=== PATIENT | female | born 1960 | race Caucasian/White ===

== ENCOUNTER 2018-12-02 01:19 | Observation (INO) | payer OTHER ==
[2018-12-02] MEDS ORDERED: NS 1,000 ML IV ONE ×2 (01:32→02:58)
--- NOTE | 2018-12-02 01:32 | EDPHY ---
H & P Stated Complaint: ABd/chest pain-recent cardiac w/u and hx of SBO Time Seen by Provider: 12/02/18 01:32 HPI/ROS: HPI CHIEF COMPLAINT: Abdominal pain and chest pain. HISTORY OF PRESENT ILLNESS: Patient is a 58-year-old female she complains of abdominal pain that started Tuesday. She no some upper abdominal pain with associated nausea no vomiting. The pain persisted. Waxing waning throughout the week. Also complains of left shoulder, left jaw, left upper arm pain,, complains of left-sided chest pain. She went to her primary care doctor's office earlier yesterday and had a KUB. She is unsure exactly what that showed. She reports ongoing nausea, however abdominal pain in her upper abdomen got worse. And has some left-sided upper chest pain associated with this. She reports to me that is often when she gets upper abdominal pain she gets associated chest pain with this. She denies fever, denies shortness of breath, denies active vomiting or diarrhea she had a bowel movement earlier today. However her abdominal pain in her epigastric region got worse. This is what prompted her to come to the emergency room. Past Medical History: Denies significant medical history except for harm replacement. Past Surgical History: Multiple abdominal surgeries including gallbladder removal, appendectomy, endometriosis surgery, hysterectomy, bowel obstruction, bowel resection Social History: Denies drugs alcohol tobacco. Family History: Significant coronary artery disease and cardiovascular disease in her family including DC in her dad her age. ROS REVIEW OF SYSTEMS: 10 Systems were reviewed and negative with the exception of the elements mentioned in the history of present illness. Exam Constitutional triage nursing summary reviewed, vital signs reviewed, awake/ alert. Eyes normal conjunctivae and sclera, EOMI, PERRLA. HENT normal inspection, atraumatic, moist mucus membranes, no epistaxis, neck supple/ no meningismus, no raccoon eyes. Respiratory clear to auscultation bilaterally, normal breath sounds, no respiratory distress, no wheezing. Cardiovascular rate normal, regular rhythm, no murmur, no edema, distal pulses normal. Gastrointestinal mild tender palpation epigastric, no rebound, no guarding, normal bowel sounds, no distension, no pulsatile mass. Genitourinary no CVA tenderness. Musculoskeletal no midline vertebral tenderness, full range of motion, no calf swelling, no tenderness of extremities, no meningismus, good pulses, neurovascularly intact. Skin pink, warm, & dry, no rash, skin atraumatic. Neurologic awake, alert and oriented x 3, AAOx3, moves all 4 extremities equally, motor intact, sensory intact, CN II-XII intact, normal cerebellar, normal vision, normal speech. Psychiatric normal mood/affect. Heme/Lymph/Immune no lymphadenopathy. Differential Diagnosis: Differential diagnosis includes but is not limited to and in no particular order: Bowel obstruction, appendicitis, gallbladder disease, diverticulitis, colitis, enteritis, perforated viscus, gastritis, GERD , esophagitis, urinary tract infection, pyelonephritis, kidney stones Differential diagnosis includes but is not limited to: ACS, atypical chest pain , pneumothorax, pneumonia, pulmonary embolism, aortic dissection, congestive heart failure, tumor, musculoskeletal pain, esophageal pain, GERD, peptic ulcer disease, pancreatitis Medical Decision Making: Plan for this patient IV establishment IV fluid bolus , IV Zofran, EKG, troponin, basic labs, lipase, LFTs, electrolytes, chest x- ray. Rule out acute coronary syndrome, rule out pulmonary embolism. Re-evaluation: EKG interpretation by me on record in [employer] system. Impression time of EKG 1:46 a.m., sinus rhythm rate of 63, LVH, left atrial enlargement. No signs of acute ischemia. Troponin 0.00 HEART Score for Major Cardiac Events from [email or web address] on 12/02/2018 All calculations should be rechecked by clinician prior to use RESULT SUMMARY: 4 points Moderate Score (4-6 points) Risk of MACE of 12-16.6%. INPUTS: History > 1 = Moderately suspicious EKG > 0 = Normal Age > 1 = 45-64 Risk factors > 2 = 3 risk factors or history of atherosclerotic disease Initial troponin > 0 = normal limit Given the patient's left-sided jaw pain, left upper arm pain, left-sided chest pain, epigastric discomfort and nausea with no clear explanation she does have a significant family history cardiovascular disease, plan will be for admission to the hospital for further cardiac evaluation serial enzymes and stress testing. I spoke with the hospitalist service Dr. Baxter who agrees to admit. Source: Patient - Personal History Current Tetanus Diphtheria and Acellular Pertussis (TDAP): Unsure - Medical/Surgical History Hx Asthma: No Hx Chronic Respiratory Disease: No Hx Diabetes: No Hx Cardiac Disease: Yes Hx Renal Disease: No Hx Cirrhosis: No Hx Alcoholism: No Hx HIV/AIDS: No Hx Splenectomy or Spleen Trauma: No Other PMH: cholecysectomy, stricters, appendectomy, SBO, Colectomy, Endometriosis, Possible Aortic aneurysm,hysterectomy - Social History Smoking Status: Never smoked Constitutional: Initial Vital Signs Temperature (C) 36.7 C 12/02/18 01:23 Heart Rate 67 12/02/18 01:23 Respiratory Rate 16 12/02/18 01:23 Blood Pressure 169/110 H 12/02/18 01:23 O2 Sat (%) 97 12/02/18 01:23 O2 Delivery Mode Nasal Cannula O2 (L/minute) 2 Allergies/Adverse Reactions: morphine Allergy (Verified 12/02/18 01:23) Sulfa (Sulfonamide Antibiotics) Allergy (Verified 12/02/18 01:23) Home Medications: Medication Instructions Recorded Ascorbic Acid [Vitamin C 250 mg 250 mg PO DAILY 12/02/18 (*)] Cholecalciferol Vit D3 [Vitamin D3 1,000 units PO DAILY 12/02/18 (*)] Compounded Progesterone Caps 100 mg PO DAILY 12/02/18 Compounded Testosterone Cream 1 nargis TP AD 12/02/18 Estradiol [Estraderm 0.05 MG] 0.05 mg TD SUWE 12/02/18 Herbals/Supplements -Info Only 1 ea PO DAILY 12/02/18 Clark-3 Fatty Acids [Fish Oil 1000 1,000 mg PO DAILY 12/02/18 mg (*)] Pantoprazole Sodium [Protonix 40mg 40 mg PO DAILY #30 tab 12/02/18 (*)] Vitamin B Complex [Balanced B-50] 1 each PO DAILY 12/02/18 Medical Decision Making - Data Points Laboratory Results: Laboratory Results 12/02/18 01:50 12/02/18 01:50 Medications Given: Discontinued Medications Acetaminophen (Tylenol) 650 mg PO Q4HRS PRN PRN Reason: Pain, Mild/Fever, Can Take PO Stop: 05/31/19 06:24 Last Admin: 12/02/18 11:19 Dose: 650 mg Al Hydroxide/Mg Hydroxide (Maalox Susp) 30 ml PO ONCE ONE Stop: 12/02/18 06:35 Last Admin: 12/02/18 08:04 Dose: 30 ml Enoxaparin Sodium (Lovenox) 40 mg SC DAILY RONALD Stop: 05/31/19 08:59 Last Admin: 12/02/18 08:09 Dose: 40 mg Hydromorphone HCl (Dilaudid) 0.5 mg IVP EDNOW ONE Stop: 12/02/18 03:04 Last Admin: 12/02/18 03:19 Dose: 0.5 mg Hyoscyamine Sulfate (Levsin, Hyomax-Sl) 0.25 mg PO ONCE ONE Stop: 12/02/18 06:35 Last Admin: 12/02/18 08:04 Dose: 0.25 mg Sodium Chloride (Ns) 1,000 mls @ 0 mls/hr IV EDNOW ONE; Wide Open PRN Reason: Protocol Stop: 12/02/18 01:33 Last Admin: 12/02/18 02:02 Dose: 1,000 mls Sodium Chloride (Ns) 1,000 mls @ 0 mls/hr IV ONCE ONE PRN Reason: Wide Open Stop: 12/02/18 02:59 Last Admin: 12/02/18 03:18 Dose: 1,000 mls Sodium Chloride (Ns) 1,000 mls @ 100 mls/hr IV CONT RONALD Stop: 05/31/19 06:44 Last Admin: 12/02/18 08:03 Dose: 1,000 mls Lidocaine (Lidocaine 2% Viscous) 15 ml PO ONCE ONE Stop: 12/02/18 06:35 Last Admin: 12/02/18 08:04 Dose: 15 ml Ondansetron HCl (Zofran) 4 mg IVP EDNOW ONE Stop: 12/02/18 01:45 Last Admin: 12/02/18 02:03 Dose: 4 mg Point of Care Test Results: Chemistry 12/02/18 01:54 POC Troponin I 0.00 ng/mL ng/mL (0.00-0.08) Departure - Departure Disposition: [facility] Acute Clinical Impression: Chest pain Qualifiers: Chest pain type: unspecified Qualified Code(s): R07.9 - Chest pain, unspecified Condition: Fair
[2018-12-02] MEDS ORDERED: ONDANSETRON 4 MG/2 ML VIAL IVP ONE (01:44)
[2018-12-02 02:00] LABS: PLATELET COUNT 277 10^3/uL (150-400)
[2018-12-02 02:08] LABS: INR 1.07 (0.83-1.16); PROTIME(PATIENT) 13.5 SEC (12.0-15.0)
[2018-12-02] MEDS ORDERED: IOPAMIDOL (ISOVUE-300) 100 ML BTL ONE (03:03)
[2018-12-02] MEDS ORDERED: HYDROmorphONE/DILAUDID 2 MG/ML INJ IVP ONE (03:03)
[2018-12-02] MEDS ORDERED: ONDANSETRON 4 MG/2 ML VIAL IVP PRN (06:25)
[2018-12-02] MEDS ORDERED: ACETAMINOPHEN 325 MG TAB PO PRN (06:25)
[2018-12-02] MEDS ORDERED: ONDANSETRON DISINTEGRATING 4 MG TAB PO PRN (06:25)
[2018-12-02] MEDS ORDERED: HYOSCYAMINE SULFATE 0.125 MG TAB PO ONE (06:34)
[2018-12-02] MEDS ORDERED: MAG HYDROX/AL HYDROX/SIMETH 30 ML UDCUP PO ONE (06:34)
[2018-12-02] MEDS ORDERED: LIDOCAINE 2% VISCOUS 15 ML UDCUP PO ONE (06:34)
[2018-12-02] MEDS ORDERED: NS 1,000 ML IV SCH (06:45)
--- NOTE | 2018-12-02 06:46 | PDGENHP ---
History and Physical - Chief Complaint Abdominal pain - History of Present Illness 58 yo F w/ hx of multiple abdominal surgeries presents with 4 days of abdominal pain. The patient has had epi-gastric pain since Tuesday. She describes this as band-like pain across her upper abdomen. She has occasional discomfort in her L neck and shoulder as well. The discomfort continued into today and made it difficult to sleep so she came to the ED for evaluation. Her last BM was last night and she continues to pass gas. She has a complicated abdominal history. In 2009 she had abdominal surgery due to endometriosis requiring partial colectomy. She has also had a cholecystectomy and appendectomy. She tells me these symptoms remind her of prior bowel obstructions but have not resolved with liquid diet and rest, as usual. In the ED her evaluation, including CT, has been mostly unremarkable. She is being admitted for observation and further work-up. Case discussed with ED physician Dr. Kingsely; records reviewed and summarized above. History Information - Allergies/Home Medication List Allergies/Adverse Reactions: morphine Allergy (Verified 12/02/18 01:23) Sulfa (Sulfonamide Antibiotics) Allergy (Verified 12/02/18 01:23) Home Medications: Estradiol 12/02/18 [Last Taken Unknown] Progesterone 12/02/18 [Last Taken Unknown] Testosterone 12/02/18 [Last Taken Unknown] I have personally reviewed and updated: family history, medical history - Past Medical History Additional medical history: Endometriosis - Surgical History Reports: appendectomy, cholecystectomy, colectomy - Family History Positive for: CAD, stroke - Social History Smoking Status: Never smoked Review of Systems Review of Systems: ROS: 10pt was reviewed & negative except for what was stated in HPI & below Physical Exam Physical Exam: Temp Pulse Resp BP Pulse Ox 36.8 C 55 L 18 110/80 98 12/02/18 06:17 12/02/18 06:17 12/02/18 06:17 12/02/18 06:17 12/02/18 06:17 Constitutional: appears nourished, uncomfortable Eyes: PERRL, EOMI Ears, Nose, Mouth, Throat: moist mucous membranes, no oral mucosal ulcers Cardiovascular: regular rate and rhythym, systolic murmur Respiratory: no respiratory distress, clear to auscultation Gastrointestinal: normoactive bowel sounds, tenderness (Mild, epi-gastric) Skin: warm, normal color Musculoskeletal: full muscle strength, no muscle tenderness Neurologic: AAOx3, CN II-XII Intact Psychiatric: interacting appropriately, not anxious Lab Data & Imaging Review 12/02/18 01:50 12/02/18 01:50 WBC 8.03 10^3/uL (3.80-9.50) 12/02/18 01:50 RBC 4.88 10^6/uL (4.18-5.33) 12/02/18 01:50 Hgb 15.2 g/dL (12.6-16.3) 12/02/18 01:50 Hct 44.0 % (38.0-47.0) 12/02/18 01:50 MCV 90.2 fL (81.5-99.8) 12/02/18 01:50 MCH 31.1 pg (27.9-34.1) 12/02/18 01:50 MCHC 34.5 g/dL (32.4-36.7) 12/02/18 01:50 RDW 12.5 % (11.5-15.2) 12/02/18 01:50 Plt Count 277 10^3/uL (150-400) 12/02/18 01:50 MPV 9.4 fL (8.7-11.7) 12/02/18 01:50 Neut % (Auto) 49.5 % (39.3-74.2) 12/02/18 01:50 Lymph % (Auto) 35.6 % (15.0-45.0) 12/02/18 01:50 [place] % (Auto) 8.3 % (4.5-13.0) 12/02/18 01:50 Eos % (Auto) 5.6 % (0.6-7.6) 12/02/18 01:50 Baso % (Auto) 0.9 % (0.3-1.7) 12/02/18 01:50 Nucleat RBC Rel Count 0.0 % (0.0-0.2) 12/02/18 01:50 Absolute Neuts (auto) 3.97 10^3/uL (1.70-6.50) 12/02/18 01:50 Absolute Lymphs (auto) 2.86 10^3/uL (1.00-3.00) 12/02/18 01:50 Absolute Monos (auto) 0.67 10^3/uL (0.30-0.80) 12/02/18 01:50 Absolute Eos (auto) 0.45 10^3/uL (0.03-0.40) H 12/02/18 01:50 Absolute Basos (auto) 0.07 10^3/uL (0.02-0.10) 12/02/18 01:50 Absolute Nucleated RBC 0.00 10^3/uL (0-0.01) 12/02/18 01:50 Immature Gran % 0.1 % (0.0-1.1) 12/02/18 01:50 Immature Gran # 0.01 10^3/uL (0.00-0.10) 12/02/18 01:50 PT 13.5 SEC (12.0-15.0) 12/02/18 01:50 INR 1.07 (0.83-1.16) 12/02/18 01:50 APTT 30.2 SEC (23.0-38.0) 12/02/18 01:50 D-Dimer 0.40 ug/mLFEU (0.00-0.50) 12/02/18 01:50 VBG Lactic Acid 0.8 mmol/L (0.7-2.1) 12/02/18 02:51 Sodium 140 mEq/L (135-145) 12/02/18 01:50 Potassium 3.7 mEq/L (3.5-5.2) 12/02/18 01:50 Chloride 105 mEq/L (97-110) 12/02/18 01:50 Carbon Dioxide 26 mEq/l (22-31) 12/02/18 01:50 Anion Gap 9 mEq/L (6-14) 12/02/18 01:50 BUN 13 mg/dL (7-23) 12/02/18 01:50 Creatinine 0.9 mg/dL (0.6-1.0) 12/02/18 01:50 Estimated GFR > 60 12/02/18 01:50 Glucose 89 mg/dL (70-100) 12/02/18 01:50 Calcium 9.5 mg/dL (8.5-10.4) 12/02/18 01:50 Magnesium 2.0 mg/dL (1.6-2.3) 12/02/18 01:50 Total Bilirubin 0.8 mg/dL (0.1-1.4) 12/02/18 01:50 Conjugated Bilirubin 0.1 mg/dL (0.0-0.5) 12/02/18 01:50 Unconjugated Bilirubin 0.7 mg/dL (0.0-1.1) 12/02/18 01:50 AST 23 IU/L (14-46) 12/02/18 01:50 ALT 34 IU/L (9-52) 12/02/18 01:50 Alkaline Phosphatase 67 IU/L (38-126) 12/02/18 01:50 POC Troponin I 0.00 ng/mL (0.00-0.08) 12/02/18 01:54 NT-Pro-B Natriuret Pep 72 pg/mL (0-125) 12/02/18 01:50 Total Protein 7.1 g/dL (6.3-8.2) 12/02/18 01:50 Albumin 4.2 g/dL (3.5-5.0) 12/02/18 01:50 Lipase 151 IU/L (23-300) 12/02/18 01:50 Urine Color PALE YELLOW 12/02/18 03:05 Urine Appearance CLEAR 12/02/18 03:05 Urine pH 6.0 (5.0-7.5) 12/02/18 03:05 Ur Specific [place] 1.008 (1.002-1.030) 12/02/18 03:05 Urine Protein NEGATIVE (NEGATIVE) 12/02/18 03:05 Urine Ketones NEGATIVE (NEGATIVE) 12/02/18 03:05 Urine Blood NEGATIVE (NEGATIVE) 12/02/18 03:05 Urine Nitrate NEGATIVE (NEGATIVE) 12/02/18 03:05 Urine Bilirubin NEGATIVE (NEGATIVE) 12/02/18 03:05 Urine Urobilinogen NEGATIVE EU (0.2-1.0) 12/02/18 03:05 Ur Leukocyte Esterase NEGATIVE (NEGATIVE) 12/02/18 03:05 Urine Glucose NEGATIVE (NEGATIVE) 12/02/18 03:05 Assessment & Plan Assessment: 58 yo F w/ hx of multiple abdominal surgeries presents with 4 days of abdominal pain. Plan: 1. Abdominal pain - Unclear etiology; CT of the abdomen does not demonstrate acute etiology. She is s/p cholecystectomy and has normal LFTs. She does have some radiation to L shoulder, making atypical angina a consideration, but her HEART score is only 2-3 and she tells me these symptoms are not unusual for her. She has been having symptoms for 4 days and still has a negative troponin and non-ischemic ECG. - Admit for observation - Clear liquids, mIVF - Will trial GI cocktail - Consider PPI if GI cocktail helpful - Will trend cardiac enzymes and monitor on telemetry; I do not feel further cardiac evaluation is necessary unless abnormal - Consider surgical consult if not improving Diet - Clears, mIVF Code - Full Ppx - LMWH Dispo - Admit under observation status
[2018-12-02] MEDS ORDERED: ENOXAPARIN 40 MG/0.4 ML SYR SC SCH (09:00)
[2018-12-02 11:00] VITALS: BP 144/91
--- NOTE | 2018-12-02 12:54 | PDCARST ---
CAR Stress Test Results Type of Stress Test: Nuclear TM stress test Indication: cp Description of Procedure: After informed consent was obtained, pt was exercised according to Alber Protocol. Monitoring was performed with standard stress cylinder tester electrode placement. Vital signs were monitored according to protocol throughout the procedure. STRESS EKG AND HEMODYNAMIC DATA. Exercise time: 7: 35 min. This is equivalent to: 8.6 METS. Resting heart rate: 57 bpm. Resting blood pressure: 122/80 mmHg. Resting O2 saturation: 94 %. Peak heart rate: 146 bpm. This is 89 % of age predicted maximum heart rate response. Peak blood pressure: 150/70 mmHg. Exercise O2: 95 %. Arrhythmias : PVC couplet versus PAC couplet with aberrancy in early exercise, PAC singles and PAC couplets during exercise. Reason for termination: The test was stopped due to achieving maximal heart rate. Symptoms: The patient had baseline mild upper L chest pain did not worsen with exertion. STRESS TEST ANALYSIS. Baseline ECG: SR. Stress ECG: sinus tach. 1 mm horizontal STD with exertion. Rhythm: 1 PVC couplet (versus PAC couplet with aberrancy) in stage 1, PAC s and APC couplets on exertion. Blood pressure: Normal blood pressure response to exercise. Exercise tolerance: The patient has not/ normal exercise tolerance adjusted for age and gender. Symptoms: No worsening of baseline cp on exertion. Impression: Stress ECG is equivocal for ischemia. This is an equivocal study due to non-diagnostic ECG changes and baseline cp. Conclusion: Await nuclear images.
--- NOTE | 2018-12-02 14:38 | ECHO ---
[email or web address] [address] [address] Main: [phone] Echocardiography Examination Transthoracic Name: LALA CHOI MR#: [id number] Study Date: 12/02/2018 Study Time: 01:24 PM Date of : 1960 Age: 58 year(s) Height: 165.1 cm (65 in.) Weight: 53.98 kg (119 lb.) BSA: 1.59 m2 Gender: Female Examination: Echo Contrast: Image Quality: Adequate Rhythm: Normal sinus rhythm Heart Rate: 59 bpm BP: 144 mmHg/91 mmHg Indication: abnormal ecg Procedure Staff Referring Physician: Optics Engineer: Yanelis De La Fuente [facility] Reading Physician: Miguelnia Taylor MD Requesting Provider: Ordering Physician: Leann Solorio Indication: abnormal ecg Measurements Chambers AV/MV Label Value Normal Value Label Value Normal Value LVOT Vmax 1.32 m/s (0.7m/s - 1.1m/s) AV PGmax 8 mmHg LVOTd 1.9 cm (1.8cm - 2cm) AV Vmax 1.38 m/s LVDd, 2D 4 cm (3.9cm - 5.3cm) AMNA (Vmax) 2.7 cm2 LVDs, 2D 2.6 cm (2.1cm - 4cm) MV E Vmax 0.68 m/s IVSd, 2D 0.9 cm (0.6cm - 1.1cm) MV A Vmax 0.55 m/s LVPWd, 2D 0.9 cm MV E/A 1.24 LVEF, BP 63 % (55% - 70%) MV E/E' lateral 6.9 LVEF, 2D 65 % (54% - 74%) MV E/E' septal 8.7 (0.5 - 1.7) RVDd, 2D 3.5 cm (1.9cm - 3.8cm) MV DT 194 ms TAPSE 2 cm MV E' septal 0.08 m/s LADs, 2D 2.8 cm (2.7cm - 3.8cm) MR Vena Contracta 0.4 cm RA Area 13.2 cm2 MV E' lateral 0.1 m/s Additional Vessels MV E/E' mean 7.56 Label Value Normal Value MV E' mean 0.09 m/s AoAsc 4 cm TV/PV AoRoot, 2D 3.2 cm (1.4cm - 2.6cm) Label Value Normal Value RA Pressure 10 mmHg RVSP 28 mmHg TR Pmax 18 mmHg Patient: LALA CHOI Study Date: 12/02/2018 Page 1 of 3 01:24 PM TR Vmax 2.14 m/s PV PGmax 2 mmHg PV Vmax, Caliper 0.69 m/s (0.6m/s - 0.9m/s) Conclusions 1. Normal left ventricular size and systolic function. Normal wall motion. Ejection fraction is 63%. Normal diastolic function. 2. The right ventricle is normal in size and systolic function. 3. Mild mitral regurgitation. 4. Mild tricuspid regurgitation with normal estimated PA systolic pressure. 5. The ascending aorta is mildly dilated at 4 cm. This will require serial outpatient follow-up. Consider dedicated CT of the aorta. 6. No prior echo. Findings Left Ventricle: Left ventricle is normal in size. Normal global systolic left ventricular function. EF evaluated by EF (biplane Ventura's). The ejection fraction, measured by Simpsons method, is 63 %. EF range is estimated at 60 % - 65 %. Left ventricle wall thickness is normal. There are no regional wall motion abnormalities. Left ventricular diastolic function parameters are normal. Right Ventricle: Normal size right ventricle. Right ventricular systolic function is normal. Left Atrium: The left atrium is normal in size. Right Atrium: The right atrium is normal in size. Mitral Valve: Mitral valve appears structurally normal. Mild mitral regurgitation. No mitral valve stenosis. Aortic Valve: The aortic valve is structurally normal and trileaflet. No aortic valve regurgitation. There is no aortic stenosis. Tricuspid Valve: Tricuspid valve leaflets are structurally normal. Mild tricuspid regurgitation. Right Ventricular systolic pressure is measured at 28 mmHg. Pulmonary artery pressure normal. Pulmonic Valve: Pulmonic leaflets are structurally normal. Trivial pulmonic valve regurgitation is present. Aorta: The aortic root size in 2D measures 3.2 cm. The aortic root exhibits normal size. The ascending aorta measures 4.0 cm. Mild dilatation of the ascending aorta. Aorta Measurements AoRoot, 2D is 3.2 cm. IVC: The inferior vena cava is mildly dilated. The respirophasic change in diameter is more than 50%. Pericardium: No pericardial effusion. Exam Details Procedure Ordered: Echo Procedure Status: Routine study Image Quality: Adequate Facility Location: Cardiac Echo 1 Patient: LALA CHOI Study Date: 12/02/2018 Page 2 of 3 01:24 PM (No Signature Object) Patient: LALA CHOI Study Date: 12/02/2018 Page 3 of 3 01:24 PM [id number]
--- NOTE | 2018-12-02 15:31 | CPEKG ---
Test Reason : OPEN Blood Pressure : / mmHG Vent. Rate : 063 BPM Atrial Rate : 063 BPM P-R Int : 147 ms QRS Dur : 084 ms QT Int : 422 ms P-R-T Axes : 073 041 059 degrees QTc Int : 433 ms Sinus rhythm Probable left atrial enlargement Probable left ventricular hypertrophy Confirmed by Miguelina Taylor ([id number]) on 12/02/2018 3:31:08 PM Referred By: Barrett Baxter Confirmed By:Miguelina Taylor
[2018-12-02] MEDS ORDERED: PANTOPRAZOLE SODIUM 40 MG TAB PO SCH (15:45)
--- NOTE | 2018-12-02 16:04 | ASDISCHSUM ---
Discharge Information Plan Status:Home with No Needs Medically Cleared to Leave:12/02/2018 Discharge Date:12/02/2018 CM D/C Disposition: ADT D/C Disposition: Projected Discharge Date:12/02/2018 12:00 AM Transportation at D/C:Family Discharge Delay Reason: Follow-Up Date:12/02/2018 12:00 AM Discharge Slot: Final Diagnosis: Placement Information Patient Contact Information Contact Name:CARLOS Relationship: Address:[address] [place] Alternate Phone: [facility] Code:[place] [address] Email: Financial Information Financial Class:[employer] Primary Plan Desc:OLYA Bharath O [facility] Primary Plan Number:[id number] Secondary Plan Desc: Secondary Plan Number: Assessment Information Case Management Discharge Plan Note Case Management Discharge Discharge Order Complete? Answers: Yes Patient to Obtain Answers: via Family Medications Transportation Arranged Answers: Family/Friends Family Notified Answers: Yes Discharge Comments Notes: Pt is a 58 yo F presents with abdominal pain. Had stress test today and is being discharged independently with family support and outpatient follow-up as indicated. CM met with pt and family, no CM needs identified at this time. Family to transport. Date Signed: 12/02/2018 04:02 PM Electronically Signed By:KATTY Gregory LACE LACE Length of stay for Answers: Less than 1 day current admission Acuity / Level of Answers: No Care: Did the patient have an inpatient admission? Comorbidities - select Answers: Other Notes: abdominal surgeries; L all that apply shoulder pain # of Emergency department Answers: 0 visits in the last 6 months Score: 1 Date Signed: 12/02/2018 04:03 PM Electronically Signed By:KATTY Gregory Intervention Information
--- NOTE | 2018-12-02 16:18 | PDDCSUM ---
Discharge Summary Discharge Summary: Date of Admission: 12/02/2018 Date of Discharge: 12/02/2018 Consults: N/A Procedures: MPS, TTE, CT A/P Followup: PCP Hospital Course Problem List: 58 yo F w/ hx of multiple abdominal surgeries presents with 4 days of chest/ epigastric pain. Plan: 1. Abdominal pain - Unclear etiology; CT of the abdomen does not demonstrate acute etiology. She is s/p cholecystectomy and has normal LFTs. She does have some radiation to L shoulder, making atypical angina a consideration. She has been having symptoms for 4 days and still has a negative troponin and non- ischemic ECG. - S/p TTE, MPS with no signs of RWMA, normal EF, and no acute ischemic changes - S/p trial GI cocktail with some improvement, will d/c on trial of PPI, recommend f/u with PCP for further evaluation, possible GI w/u in the future Time spent on discharge was >35 minutes with >50% of time spent on patient education and counseling.
== END 2018-12-02 16:16 | disposition home or self-care (01) ==
LOC: F2W 06:24
PROVIDERS: ADMIT Student in an Organized Health Care Education/Training Program; ATTEND Student in an Organized Health Care Education/Training Program
DX: R10.9 Unspecified abdominal pain (principal); R07.9 Chest pain, unspecified; R11.0 Nausea; E86.9 Volume depletion, unspecified
CPT/HCPCS: 71045; 71260; 74177; 78451; 93005; 93017; 93306; A9500; G0378; 84484-ER; 96374; J1170; J1650; J2405; Q9967